=== PATIENT | male | born 1990 | race Hispanic/Latino ===

== ENCOUNTER 2017-01-16 10:31 | Emergency (ER) | payer SELFPAY ==
[2017-01-16 11:01] VITALS: BP 144/91
--- NOTE | 2017-01-16 11:36 | Emergency Department Report ---
Chief Complaint: Urogenital-Male Stated Complaint: POSS UTI/CONSTANTLY URINATING Time Seen by Provider: 01/16/17 11:10 - HPI History of Present Illness: frequent urination bs noted no concern std has had k stones before ua sent. vss nad. no cva tenderness no abd or testicular pain - Exam Vital Signs: Vital Signs 01/16/17 10:58 Temperature 97.9 F Pulse Rate 84 Respiratory 20 Rate Blood Pressure 144/91 O2 Sat by Pulse 100 Oximetry MSE screening note: Focused history and physical exam performed. Due to findings the following was ordered: ED Disposition for MSE Condition: Stable
[2017-01-16 12:23] LABS: Bilirubin,Urine NEG (Negative); Blood,Urine NEG (Negative); Ketones,Urine NEG (Negative); Leukocyte Esterase,Urine NEG (Negative); Mucus,Urine FEW /HPF; Nitrite,Urine NEG (Negative); Protein,Urine <15 mg/dL mg/dL (Negative); Urobilinogen,Urine < 2.0 mg/dL (<2.0); WBC,Urine < 1.0 /HPF (0.0-6.0)
--- NOTE | 2017-01-16 13:24 | Emergency Department Report ---
ED Male HPI - General Chief complaint: Urogenital-Male Stated complaint: POSS UTI/CONSTANTLY URINATING Time Seen by Provider: 01/16/17 13:01 Source: patient Mode of arrival: Ambulatory Limitations: No Limitations - History of Present Illness -: Gradual Radiation: none Severity: mild Quality: other (frequency) Improves with: urination denies other symptoms. denies: discharge, swelling, mass, rash, urinary retention, blood in urine, dysuria, fever, nausea/vomiting, incontinence, other (1 sex partner oral only per pt. no vag penetration. not concerned for std) - Related Data Home Medications Medication Instructions Recorded Confirmed Last Taken No Known Home Medications [No 01/16/17 01/16/17 Unknown Reported Home Medications] Allergies Allergy/AdvReac Type Severity Reaction Status Date / Time No Known Allergies Allergy Unverified 01/16/17 10:58 ED Review of Systems ROS: Stated complaint: POSS UTI/CONSTANTLY URINATING Other details as noted in HPI Comment: All other systems reviewed and negative Constitutional: no symptoms reported, see HPI. denies: chills, diaphoresis, fever, malaise Eyes: as per HPI. denies: eye pain ENT: denies: as per HPI, ear pain, throat pain Respiratory: no symptoms reported, see HPI. denies: cough, orthopnea Cardiovascular: as per HPI. denies: chest pain, palpitations, dyspnea on exertion, orthopnea Endocrine: no symptoms reported, see HPI. denies: excessive sweating, flushing , intolerance to cold, intolerance to heat Gastrointestinal: as per HPI. denies: abdominal pain, nausea, vomiting, diarrhea, constipation, hematemesis, melena, hematochezia Genitourinary: as per HPI, frequency, testicular pain. denies: urgency, dysuria , hematuria, discharge, testicular mass Musculoskeletal: as per HPI. denies: back pain, joint swelling, arthralgia Skin: as per HPI. denies: rash, lesions Neurological: as per HPI. denies: headache, weakness Psychiatric: as per HPI. denies: anxiety, depression Hematological/Lymphatic: as per HPI. denies: easy bleeding ED Past Medical Hx - Past Medical History Previous Medical History?: Yes Hx Kidney Stones: Yes Additional medical history: k stones hx. obese - Surgical History Past Surgical History?: No - Social History Smoking Status: Never Smoker Substance Use Type: Alcohol - Medications Home Medications: Home Medications Medication Instructions Recorded Confirmed Last Taken Type No Known Home Medications [No 01/16/17 01/16/17 Unknown History Reported Home Medications] ED Physical Exam - General Limitations: No Limitations General appearance: alert, in no apparent distress - Head Head exam: Present: atraumatic - Eye Eye exam: Present: normal appearance - ENT ENT exam: Present: mucous membranes moist - Neck Neck exam: Present: normal inspection. Absent: tenderness, meningismus - Respiratory Respiratory exam: Present: normal lung sounds bilaterally. Absent: respiratory distress, wheezes, rhonchi, stridor - Cardiovascular Cardiovascular Exam: Present: regular rate, normal rhythm. Absent: bradycardia , tachycardia, irregular rhythm - GI/Abdominal GI/Abdominal exam: Present: soft, normal bowel sounds, other (obese- gaining weight per pt since he moved here). Absent: distended, tenderness, guarding, rebound, rigid, diminished bowel sounds, hyperactive bowel sounds, hypoactive bowel sounds, organomegaly, mass, bruit, pulsatile mass, hernia - Rectal Rectal exam: Present: normal inspection, other (no discharge. no dysuria. no test pain) - exam: Present: normal inspection External exam: Present: normal external exam - Expanded Exam Expanded Male exam: Absent: phimosis, paraphimosis, penile swelling, lesions, induration, erythema, perineal induration, balanitis, priapism - Extremities Exam Extremities exam: Present: normal inspection. Absent: full ROM, tenderness - Back Exam Back exam: Present: normal inspection, full ROM. Absent: tenderness, CVA tenderness (R), CVA tenderness (L), muscle spasm, paraspinal tenderness, vertebral tenderness - Neurological Exam Neurological exam: Present: alert, altered, oriented X3, CN II-XII intact, normal gait. Absent: abnormal gait - Psychiatric Psychiatric exam: Present: normal affect, normal mood. Absent: depressed, agitated - Skin Skin exam: Present: warm, dry, intact, normal color. Absent: rash ED Course Vital Signs 01/16/17 10:58 Temperature 97.9 F Pulse Rate 84 Respiratory 20 Rate Blood Pressure 144/91 O2 Sat by Pulse 100 Oximetry - Reevaluation(s) Reevaluation #1: 01/16/17 13:21 to er w co frequency no dysuria no std concern hx stone he wanted to make sure not stone. no pain. no cva tenderness. no fever. he also wanted to make sure not dm. no sugar in urine. bs noted. vss nad no fever playing on his phone Discussed w Dr Guaman nd home w uro or pcp fu pt updated and given referral to [facility] he verbalizes understanding. ED Medical Decision Making - Medical Decision Making not concerned for uti no dysuria hx stones- unlikely w presentation but will have fu w uro vss. nad. no pain- only frequency - Differential Diagnosis ro uti/pylo/std Critical care attestation.: If time is entered above; I have spent that time in minutes in the direct care of this critically ill patient, excluding procedure time. ED Disposition Clinical Impression: Urinary frequency Disposition: DC-01 TO HOME OR SELFCARE Is pt being admited?: No Does the pt Need Aspirin: No Condition: Stable Instructions: Dysuria (ED) Additional Instructions: do not drink within 4 hours of bedtime follow up as we discussed here no infection today. blood sugar 103 referral to URO Referrals: PRIMARY CAREMD [Primary Care Provider] - 3-5 Days Time of Disposition: 13:24
== END 2017-01-16 14:08 | disposition home or self-care (01) ==
LOC: ED 10:31
DX: R35.0 Frequency of micturition (principal)
CPT/HCPCS: 81001; 82962; 99282